=== PATIENT | male | born 1980 | race Caucasian/White ===

== ENCOUNTER 2023-03-10 12:09 | Observation (INO) | payer OTHER ==
[2023-03-10] VITALS (13 sets, daily range): BP systolic 137–152; BP diastolic 70–90
[~2023-03-10] VITALS: Ht 175.3 cm; Wt 117.5 kg
--- NOTE | 2023-03-10 14:39 | NUR ---
REPORT FROM BRAULIO SANDERSON RN. PT AXOX4, ABLE TO REPOSITION SELF IN BED. NO ACUTE DISTRESS NOTED. PARTER AT BEDSIDE.
--- NOTE | 2023-03-10 19:24 | NUR ---
SHIFT SUMMARY POD0 LAP APPY, A/OX4, VSS, TOLERATING PO, DENIES PAIN, PT WAS ABLE TO STAND AND SELF TRANSFER TO HIS BED. HE CAME OUT APPROXIMATELY 30 MINUTES BEFORE SHIFT CHANGE AND WAS ORIENTED TO HIS ROOM. DISCUSSED PLAN OF CARE FOR THE NIGHT WITH HIM. NO ACUTE EVENTS THIS SHIFT, CALL LIGHT IN REACH.
[2023-03-11 04:15] VITALS: BP 140/80
--- NOTE | 2023-03-11 04:42 | NUR ---
SHIFT SUMMARY POD 1 LAP APPY. PT RESTED WELL. VSS. LAP SITES TO ABD REMAIN CDI. PT REPORTS PASSING FLATUS AND HAS TOLERATED PO. INDEP TO RESTROOM. DENIES PAIN. IV ABX PER ORDERS. USES CALL LIGHT APPROPRIATELY. PLANS TO DISCHARGE HOME TODAY.
[2023-03-11 05:29] LABS: BASOPHILS ABSOLUTE AUTO 0.02 K/mm3 (0.00-0.23); BASOPHILS PERCENT AUTO 0 % (0-2); EOSINOPHILS PERCENT AUTO 0 % (0-6); Hematocrit 44.2 % (37.0-53.0); Hemoglobin 15.5 g/dL (13.5-17.5); IMMATURE GRAN ABSOLUTE AUTO 0.05 K/mm3 (0.00-0.10); IMMATURE GRAN PERCENT AUTO 0 % (0-1); LYMPHOCYTES PERCENT AUTO 12 % (21-46); MONOCYTES PERCENT AUTO 9 % (4-13); Mean Corpuscular HGB 29.9 pg (26.0-34.0); Mean Corpuscular HGB Conc 35.1 g/dL (31.5-36.5); Mean Corpuscular Volume 85 fL (80-100); Mean Platelet Volume 9.9 fL (9.1-12.4); NEUTROPHILS ABSOLUTE AUTO 11.43 K/mm3 (1.96-9.15); NEUTROPHILS PERCENT AUTO 78 % (41-73); Platelet Count 247 K/mm3 (150-400); RDW Standard Deviation 37.2 fL (35.1-46.3); Red Blood Cell Count 5.18 M/mm3 (4.30-5.90)
[2023-03-11 06:02] LABS: Bun/Creatinine Ratio 14.9 (12.0-20.0); Calcium, Blood 8.5 mg/dL (8.5-10.1); Creatinine, Blood 0.87 mg/dL (0.60-1.20); Potassium, Blood 3.8 mmol/L (3.5-5.5)
[2023-03-11 07:42] VITALS: BP 144/83
[2023-03-11] MEDS ORDERED: AMOCLA875 PO (10:11)
[2023-03-11] MEDS ORDERED: HYDR1TAB94 PO (10:11)
--- NOTE | 2023-03-11 11:50 | NUR ---
DISCHARGE PT D/C VIA WC TO POV AT APPROXIMATELY 1130. VSS, AFEBRILE, BREATHING EVEN AND UNLABORED. PAIN MANAGED WELL, LAP SITES WNL. PT STATES HAS BEEN PASSING FLATUS. REVIEWED DISCHARGE INSTRUCTIONS WITH PATIENT AND SIGNIFICANT OTHER, ALL QUESTIONS ANSWERED.
== END 2023-03-11 11:28 | disposition home or self-care (01) ==
LOC: ER 12:09 → SURS 12:10 → ER 13:38 → UNDODEPER 16:03 → SURS 17:42
PROVIDERS: ADMIT Surgery
PROC: 0DTJ4ZZ Resection of Appendix, Percutaneous Endoscopic Approach (ICD-10-PCS; principal; 2023-03-10 14:30)
DX: K35.80 Unspecified acute appendicitis (principal); K38.2 Diverticulum of appendix; Z88.8 Allergy status to other drugs, medicaments and biological substances; R74.01 Elevation of levels of liver transaminase levels; R10.9 Unspecified abdominal pain
CPT/HCPCS: 36415; 74022; 74177; 80048; 80053; 83690; 85025; 88304; 96374-59; 96375-59; 99285-25; A9270; J0295; J1100; J1170; J1885; J2405; J2704; J3010; J7030; J7120; Q9967

== ENCOUNTER → 2023-03-10 | Outpatient (CLI) | payer OTHER ==
[~2023-03-10] MED LIST: AMOCLA875 PO; HYDR1TAB94 PO
[2023-03-10 09:45] LABS: BASOPHILS ABSOLUTE AUTO 0.05 K/mm3 (0.00-0.23); BASOPHILS PERCENT AUTO 0 % (0-2); EOSINOPHILS ABSOLUTE AUTO 0.01 K/mm3 (0.00-0.68); EOSINOPHILS PERCENT AUTO 0 % (0-6); Hematocrit 49.1 % (37.0-53.0); Hemoglobin 17.7 g/dL (13.5-17.5); IMMATURE GRAN ABSOLUTE AUTO 0.06 K/mm3 (0.00-0.10); IMMATURE GRAN PERCENT AUTO 0 % (0-1); LYMPHOCYTES ABSOLUTE AUTO 1.53 K/mm3 (0.84-5.20); LYMPHOCYTES PERCENT AUTO 9 % (21-46); MONOCYTES ABSOLUTE AUTO 1.17 K/mm3 (0.16-1.47); MONOCYTES PERCENT AUTO 7 % (4-13); Mean Corpuscular HGB 30.3 pg (26.0-34.0); Mean Corpuscular Volume 84 fL (80-100); Mean Platelet Volume 9.4 fL (9.1-12.4); NEUTROPHILS ABSOLUTE AUTO 14.15 K/mm3 (1.96-9.15); NEUTROPHILS PERCENT AUTO 83 % (41-73); Platelet Count 284 K/mm3 (150-400); RDW Coefficient Variation 12.1 % (11.7-14.2); RDW Standard Deviation 36.5 fL (35.1-46.3); Red Blood Cell Count 5.85 M/mm3 (4.30-5.90); White Blood Cell Count 16.97 K/mm3 (4.00-11.30)
[2023-03-10 09:55] LABS: Albumin, Blood 4.5 g/dL (3.4-5.0); Albumin/Globulin Ratio 1.1 (0.8-1.8); Bilirubin, Total 1.8 mg/dL (0.1-1.0); Bun/Creatinine Ratio 8.9 (12.0-20.0); Calcium, Blood 9.6 mg/dL (8.5-10.1); Creatinine, Blood 1.01 mg/dL (0.60-1.20); Globulin, Blood 4.2 g/dL (2.2-4.0); Potassium, Blood 3.8 mmol/L (3.5-5.5); Total Protein, Blood 8.7 g/dL (6.4-8.2)
== END ==
LOC: LAB SHORT 09:39 → LAB 09:39
PROVIDERS: Family Medicine
DX: R10.9 Unspecified abdominal pain (principal)
CPT/HCPCS: 80053; 83690; 85025